=== PATIENT | male | born 1955 ===

== ENCOUNTER 2018-08-29 10:19 | Day surgery (SDC) | payer OTHER, BC ==
[2018-03-18 11:39] VITALS: BMI 26.5
[2018-08-29] MEDS ORDERED: Lidocaine Hydrochloride 5 ML INJ ONE (12:29)
[2018-08-29] MEDS ORDERED: Lidocaine 4% (Laryng-O-Jet) Kit MM ONE (12:31)
[2018-08-29] MEDS ORDERED: Lactated Ringer's 1,000 ML IV ONE (13:05)
--- NOTE | 2018-08-29 13:06 | CP.SDSHP ---
Same Day Surgery H & P - History Proposed Procedure: EGD Pre-Op Diagnosis: heartburn - Previous Medical/Surgical History Cardiac: Hypertension Endocrine/Metabolic: Diabetes Comments: hyperlipidemia - Allergies Allergies: Allergies doxycycline Allergy (Verified 08/28/18 12:56) RASH erythromycin base Allergy (Verified 08/28/18 12:56) RASH Sulfa (Sulfonamide Antibiotics) Allergy (Verified 08/28/18 12:56) RASH - Physical Exam General Appearance: NAD Vital Signs: Vital Signs 08/29/18 10:30 Temperature 97.8 F Pulse Rate 92 H Respiratory 20 Rate Blood Pressure 147/86 O2 Sat by Pulse 95 Oximetry Mental Status: Alert & Oriented x3 Neuro: WNL Heart: WNL Lungs: WNL GI: WNL - {Optional Preform as Required} Abdomen: WNL - Impression Pt. Evaluated Today:Candidate for Anesthesia & Procedure: Yes - Date & Time Date: 08/29/18 Time: 13:06 Short Stay Discharge - Short Stay Discharge Admitting Diagnosis/Reason for Visit: IRRITABLE BOWEL SYNDROME WITH DIARRHEA Disposition: HOME/ ROUTINE Referrals: Harsh Fitzgerald MD [Primary Care Provider] -
[2018-08-29] MEDS ORDERED: Lactated Ringer's 500 ML IV SCH (13:30)
[2018-08-29 14:31] VITALS: BP 154/88; PULSE 95; RESP 16; TEMP 97; O2SAT 100
== END 2018-08-29 14:30 | disposition home or self-care (01) ==
LOC: C.ENDO 10:19
PROVIDERS: ATTEND Internal Medicine Gastroenterology
DX: K58.0 Irritable bowel syndrome with diarrhea (principal); K21.9 Gastro-esophageal reflux disease without esophagitis; K20.9 Esophagitis, unspecified; K44.9 Diaphragmatic hernia without obstruction or gangrene
CPT/HCPCS: 43239; 82948; 88305; 88312; 88313; 88342; J2001; J7120